=== PATIENT | male | born 1985 | race Caucasian/White ===

== ENCOUNTER 2020-10-05 21:29 | Emergency (ER) | payer OTHER, SELFPAY ==
--- NOTE | ~2020-10-05 | XR_ITS ---
EXAMINATION: XR chest 2V DATE: 10/05/2020 22:24 INDICATION: Midsternal chest pain and pain with inspiration after an industrial compressor fell on c hest. TECHNIQUE: PA and lateral views of the chest were obtained. COMPARISON: Chest radiograph dated 03/18/2008 FINDINGS: The lungs remain clear with no focal airspace opacities, pulmonary edema, pleural effusion or pneumot horax. The cardiomediastinal silhouette is normal. Mild thoracic spondylosis. Sternum appears intact on the lateral projection with normal retrosternal clear space and no evident presternal soft tissue swelling. Unchanged small metallic BB which projects over the medial aspect of the right upper arm. IMPRESSION: 1. No acute cardiopulmonary disease. Reviewed, dictated and finalized at location A. [facility]
--- NOTE | ~2020-10-05 | XR_ITS ---
EXAMINATION: XR knee LT 3V DATE: 10/05/2020 23:31 INDICATION: Medial left knee pain post blunt trauma TECHNIQUE: Anteroposterior, 2 oblique and crosstable lateral views of the left knee were obtained COMPARISON: None. FINDINGS: Alignment is normal. No fracture. Joint spaces appear normal on nonweightbearing imaging. No joint e ffusion/layering lipohemarthrosis. Soft tissues are unremarkable. IMPRESSION: 1. Negative left knee radiographs. Reviewed, dictated and finalized at location A. [facility]
[2020-10-05 21:38] VITALS: BP 142/86; PULSE 72; RESP 20; TEMP 36.8; O2SAT 99
[2020-10-05] MEDS: HYDROcodone/acetaminophen (*CRX) 5-325 MG TABLET 1 TAB PO (23:46)
--- NOTE | 2020-10-06 00:29 | ED.GENADULT ---
HPI - General Adult General Chief complaint: Chest Pain Stated complaint: Air compressor fell on my chest Time Seen by Provider: 10/05/20 23:04 History of Present Illness HPI narrative: Patient is a 35-year-old male who presents ER with pain to the center of his chest as well as his left knee. He had an upright air compressor he was moving a felipe when it tipped backwards and struck him in the chest. He then tried to lower to the ground and struck the medial aspect of his left knee. He has no shortness of breath and is ambulating without issue. No numbness/tingling in the leg. No additional concerns. Not taking pain medication. Pain in the central chest is worse with palpation and deep breaths. Related Data Home Medications Medication Instructions Recorded Confirmed No Home Medications 10/05/20 10/05/20 Allergies Allergy/AdvReac Type Severity Reaction Status Date / Time No Known Allergies Allergy Verified 10/05/20 22:00 Review of Systems Constitutional: Constitutional: Denies chills, Denies fever(s) and Denies weakness Cardiovascular: Cardiovascular: Reports chest pain, Denies rapid heart rate and Denies radiating jaw, neck or arm pain Respiratory: Respiratory: Denies cough, Denies dyspnea and Denies wheezing Musculoskeletal: Musculoskeletal: Denies back pain, Reports arthralgias and Denies joint swelling PMFSH Past Medical History Medical History (Updated 10/06/20 @ 00:34 by Doug Chávez MD) Healthy adult male Surgical History Surgical History (Updated 10/06/20 @ 00:30 by Doug Chávez MD) History of appendectomy Social History Social History (Updated 10/06/20 @ 00:30 by Doug Chávez MD) Smoking status: Current every day smoker Gender identity (if verbalized by the patient): Male Exam Narrative: Exam Narrative: GENERAL: Well-appearing, well-nourished, and in no acute distress. HEAD: Normocephalic, atraumatic. CHEST: Clear to auscultation. No respiratory distress. No reproducible tenderness over the sternum. HEART: Regular rate and rhythm. Normal peripheral pulses EXTREMITIES: Normal range of motion. No edema. Normal varus and valgus stressing of the left knee. Negative anterior drawer. SKIN: Warm, dry, no rash. NEURO: Alert and oriented x3. PSYCH: Normal mood and affect. Course Course Emergency Course: Unremarkable evaluation. [place] x1. Discharge home. Vital Signs Vital signs: Vital Signs Temperature 98.3 F 10/05/20 21:38 Pulse Rate 72 10/05/20 21:38 Respiratory Rate 20 10/05/20 21:38 Blood Pressure 142/86 H 10/05/20 21:38 Pulse Oximetry 99 10/05/20 21:38 Temperature 98.3 F 10/05/20 21:38 Pulse Rate 72 10/05/20 21:38 Respiratory Rate 20 10/05/20 21:38 Blood Pressure 142/86 H 10/05/20 21:38 Pulse Oximetry 99 10/05/20 21:38 Medical Decision Making Vital Signs Vital Signs: Vital Signs Temperature 98.3 F 10/05/20 21:38 Pulse Rate 72 10/05/20 21:38 Respiratory Rate 20 10/05/20 21:38 Blood Pressure 142/86 H 10/05/20 21:38 Pulse Oximetry 99 10/05/20 21:38 Temperature 98.3 F 10/05/20 21:38 Pulse Rate 72 10/05/20 21:38 Respiratory Rate 20 10/05/20 21:38 Blood Pressure 142/86 H 10/05/20 21:38 Pulse Oximetry 99 10/05/20 21:38 Imaging Data Radiologist's impression: ITS Impressions Chest X-Ray 10/05/20 22:39 IMPRESSION: 1. No acute cardiopulmonary disease. Knee X-Ray 10/05/20 23:43 IMPRESSION: 1. Negative left knee radiographs. Discharge Plan Discharge Clinical Impression: Costalchondritis Patient Disposition: Home, Self-Care Condition: Stable Instructions: Knee Sprain (ED), Chest Wall Pain (ED) Additional Instructions: Return to the ER fi you have new injury, you have chest pain with shortness of breath, or you have other concerns. Take naproxen with food. Prescriptions: New naproxen 500 mg tablet 500 mg PO BID Qty: 14 RF: 0
[2020-10-06 00:38] VITALS: BP 127/84; PULSE 72; RESP 16; TEMP 36.7; O2SAT 98
== END 2020-10-06 00:39 | disposition home or self-care (01) ==
PROVIDERS: Emergency Provider Emergency Medicine
DX: M94.0 Chondrocostal junction syndrome [Tietze] (principal); F17.200 Nicotine dependence, unspecified, uncomplicated
CPT/HCPCS: 71046; 73562; 99284; A9270

== ENCOUNTER 2021-07-27 12:28 | Emergency (ER) | payer OTHER, SELFPAY ==
--- NOTE | ~2021-07-27 | XR_ITS ---
EXAMINATION: XR chest 2V EXAM DATE: 07/27/2021 13:25 INDICATION: Right-sided intermittent chest pain 2-3 days. TECHNIQUE: Frontal and lateral projections of the chest obtained and reviewed. There is no prior tyrone dy for comparison. FINDINGS: Small amount of biapical postinfectious residua. The lungs are otherwise clear. There are no pleural effusions. The cardiomediastinal silhouette is within normal limits. There is no pneumot horax suspected. Platelike foreign body in the right upper arm soft tissues. IMPRESSION: No acute cardiopulmonary findings. Reviewed, dictated and finalized at location A. [facility]
--- NOTE | 2021-07-27 12:30 | ECG_ITS ---
Measurements Intervals [place] Rate: 59 P: 63 GA: 145 QRS: 101 QRSD: 92 T: 61 QT: 372 QTc: 369 Interpretive Statements SINUS BRADYCARDIA WITH SINUS ARRHYTHMIA RIGHT AXIS DEVIATION DELAYED PRECORDIAL R/S TRANSITION BORDERLINE ECG Electronically Signed On 07-27-2021 13:12:57 AMBULANCE ASSISTANT by Henri Villafuerte D.O.
[2021-07-27 13:00] VITALS: BP 117/65; PULSE 61; RESP 16; TEMP 36.4; O2SAT 100
[2021-07-27 13:36] LABS: Basophils Absolute Auto 0.1 K/mm3 (0.0-0.1); Basophils Percent Auto 1.1 % (0.2-1.2); Eosinophils Absolute Auto 0.3 K/mm3 (0-0.3); Eosinophils Percent Auto 4.3 % (0-4.4); Hematocrit 43.4 % (42.0-52.0); Hemoglobin 15.7 g/dL (14.0-18.0); Immature Granulocyte Absolute 0.01 K/mm3 (0.00-0.031); Immature Granulocyte Percent A 0.2 % (0-0.5); Lymphocytes Absolute Auto 1.72 K/mm3 (0.9-3.2); Lymphocytes Percent Auto 27.3 % (18.3-44.2); Mean Corpuscular HGB Conc 36.2 g/dl (32-36); Mean Corpuscular Hemoglobin 31.5 pg (26-34); Mean Corpuscular Volume 87.1 fl (80-100); Mean Platelet Volume 8.8 fl (7.4-10.4); Monocytes Absolute Auto 0.5 K/mm3 (0.1-0.6); Monocytes Percent Auto 8.4 % (2.6-8.5); Neutrophils Absolute Auto 3.7 K/mm3 (1.3-6.7); Neutrophils Percent Auto 58.7 % (45.5-73.1); Platelet Count Result 327 k/mm3 (150-375); Red Blood Count 4.98 M/mm3 (4.6-6.20); Red Cell Distribution Width 12.3 % (11.5-14.5); White Blood Count 6.3 K/mm3 (4.5-10.0)
[2021-07-27 13:46] LABS: Partial Thromboplastin Time 28.1 SECONDS (22.3-36.8)
[2021-07-27 13:49] LABS: Alanine Aminotransferase 22 U/L (4-50); Albumin Level 4.7 g/dL (3.5-5.1); Alkaline Phosphatase 80 U/L (38-126); Anion Gap 10 mmol/L (8-16); Aspartate Amino Transferase 30 U/L (17-59); Bilirubin,Total 0.7 mg/dL (0.2-1.3); Blood Urea Nitrogen 9 mg/dL (9-20); Calcium 9.6 mg/dL (8.4-10.2); Carbon Dioxide 27 mmol/L (22-30); Chloride 105 mmol/L (98-107); Estimated CRCL calculation 124 ml/min; Estimated Glomerular Filt Rate > 60; Glucose 118 mg/dL (65-110); Lipase 57 U/L (23-300); Sodium 142 mmol/L (137-145)
[2021-07-27 13:59] LABS: Troponin I < 0.012 ng/mL (0.000-0.034)
[2021-07-27 15:52] VITALS: BP 120/74; PULSE 60; O2SAT 100
[2021-07-27 16:30] LABS: Troponin I < 0.012 ng/mL (0.000-0.034)
--- NOTE | 2021-07-27 18:25 | ED.GENADULT ---
HPI - General Adult General Chief complaint: Unspecified Stated complaint: INT CHEST PAIN, DECREASED APPETITE Time Seen by Provider: 07/27/21 17:37 Source: patient Mode of arrival: ambulatory Limitations: no limitations History of Present Illness HPI narrative: Patient is a 36-year-old male with chief complaint of intermittent right-sided chest pain and decreased appetite over the past 3 to 4 days. Patient states that he has been under tremendous amount of stress as his son is in the NICU and he has not been allowed to visit. Patient reports that he smokes cigarettes daily approximately 1 to 2 packs a day. Patient reports he also smokes marijuana. Patient denies other substance use such as cocaine. Patient denies history of prior [place] or stroke. Patient denies any history of hypertension, hypercholesterolemia. Patient denies close family history of early age stroke or TN. Patient denies chest pain presently. Patient reports he is also has some decreased appetite. He denies abdominal pain, nausea or vomiting. Related Data Home Medications Medication Instructions Recorded Confirmed No Home Medications 10/05/20 10/05/20 Allergies Allergy/AdvReac Type Severity Reaction Status Date / Time No Known Allergies Allergy Verified 10/05/20 22:00 Review of Systems Review of Systems: CONSTITUTIONAL: Reports decreased appetite denies fever, chills, or sweats. EYES: Denies visual changes, redness, or discharge. ENT: Denies rhinorrhea, congestion, sore throat, or otalgia. CARDIOVASCULAR: Reports intermittent chest pain, palpitations, or edema. RESPIRATORY: Denies cough or dyspnea. GASTROINTESTINAL: Denies abdominal pain, nausea, vomiting, or diarrhea. GENITOURINARY: Denies dysuria or hematuria. SKIN: Denies rash or itching. MUSCULOSKELETAL: Denies back pain, joint pain, or myalgia. NEUROLOGIC: Denies headache, numbness, dizziness, or weakness. PSYCHIATRIC: Denies anxiety or depression. [facility] Past Medical History Medical History (Updated 07/27/21 @ 17:59 by Winnie Fang PA-C) Healthy adult male Surgical History Surgical History (Updated 10/06/20 @ 00:30 by Doug Chávez MD) History of appendectomy Social History Social History (Updated 10/06/20 @ 00:30 by Doug Chávez MD) Smoking status: Current every day smoker Gender identity (if verbalized by the patient): Male Exam Narrative: GENERAL: Well-appearing, well-nourished, and in no acute distress. HEAD: Normocephalic, atraumatic. EYES: PERRLA and EOMI. CHEST: Clear to auscultation. No respiratory distress. No wheezes rales or rhonchi HEART: Regular rate and rhythm. No murmur heard. Normal peripheral pulses. ABDOMEN: Soft, nontender, nondistended, normal active bowel sounds. EXTREMITIES: Normal range of motion. No edema. SKIN: Warm, dry, no rash. NEURO: No focal deficits. Alert and oriented x3. PSYCH: Normal mood and affect. Course Vital Signs Vital signs: Vital Signs Temperature 97.5 F L 07/27/21 13:00 Pulse Rate 61 07/27/21 13:00 Respiratory Rate 16 07/27/21 13:00 Blood Pressure 117/65 07/27/21 13:00 Pulse Oximetry 100 07/27/21 13:00 Temperature 97.5 F L 07/27/21 13:00 Pulse Rate 60 07/27/21 15:52 Respiratory Rate 16 07/27/21 13:00 Blood Pressure 120/74 07/27/21 15:52 Pulse Oximetry 100 07/27/21 15:52 Medical Decision Making MDM Narrative Medical decision making narrative: Patient's EKG is without signs of TN. Patient's initial and delta troponins are negative. Patient's heart score is low. Discussed with patient the need to follow-up with primary care for further investigation into his symptoms. Instructed patient to return to emergency department if he has any emergent symptoms. Vital Signs Vital Signs: Vital Signs Temperature 97.5 F L 07/27/21 13:00 Pulse Rate 61 07/27/21 13:00 Respiratory Rate 16 07/27/21 13:00 Blood Pressure 117/65 07/27/21 13:00 Pulse Oximetry 100 11/
[2021-07-27 18:33] VITALS: BP 128/74; PULSE 80; RESP 14; O2SAT 99
== END 2021-07-27 18:33 | disposition home or self-care (01) ==
PROVIDERS: Emergency Medicine; Emergency Provider Emergency Medicine
DX: R07.9 Chest pain, unspecified (principal); F41.9 Anxiety disorder, unspecified; F17.210 Nicotine dependence, cigarettes, uncomplicated
CPT/HCPCS: 36415; 71046; 80053; 83690; 84484; 85025; 85610; 85730; 93005; 99284